=== PATIENT | female | born 1940 | race Two or more races ===

== ENCOUNTER 2024-09-07 09:00 | Day surgery (SDC) | payer OTHER, SELFPAY ==
--- NOTE | 2024-09-01 10:46 | EKG_ITS ---
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
[2024-09-01 10:58] VITALS: BMI 21.4
[2024-09-01 13:16] LABS: Alanine Aminotransferase 13 U/L (10-49); Albumin, Serum 4.2 gm/dL (3.4-4.8); Albumin/Globulin Ratio 1.5 (1.2-2.2); Alkaline Phosphatase 107 U/L (46-116); Anion Gap 7 (7-16); Aspartate Amino Transferase 15 U/L (0-34); BUN/Creatinine Ratio 17 Ratio (12-20); Blood Urea Nitrogen 12 mg/dL (9-23); Calcium 9.5 mg/dL (8.3-10.6); Calcium (Corrected) 9.5 mg/dL (8.5-10.1); Carbon Dioxide 28.6 mMol/L (20.0-31.0); Chloride 102 mMol/L (98-107); Creatinine (Component) 0.7 mg/dL (0.6-1.3); Estimated Creatinine Clearance 40.8 mL/min (>60); Globulin 2.8 gm/dL (2.3-3.5); Glucose 281 mg/dL (74-106); Osmolality,Calculated 285 (275-295); Potassium 4.4 mMol/L (3.4-5.1); Sodium 138 mMol/L (136-145); eGFR > 60 See Note
[2024-09-01 14:12] LABS: Bilirubin,Total 0.6 mg/dL (0.3-1.2)
[2024-09-07] VITALS (13 sets, daily range): BP systolic 116–164; BP diastolic 62–85; PULSE 61–82; RESP 16–20; TEMP 36.2–36.8; O2SAT 96–100; BMI 21.3
[2024-09-07] MEDS: INSULIN HUM REGULAR 1 UNIT/0.01 ML (PER UNIT) 5 UNIT SC (10:45)
--- NOTE | 2024-09-07 13:52 | SUR.PHASEI ---
pt received from OR in recovery bay 5. pt obtunded, breathing unlabored on oxymask 6l, oral airway in place. v/s stable. pt dressing to left ear cdi. report received from Jai CALVERT and Dr. Perez.
--- NOTE | 2024-09-07 13:57 | PD.SUROPNT ---
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 Long process of the malleus was completely eroded and it was fixed as well. Incudostapedial joint was intact and mobile once the malleus was mobilized. Facial nerve was identified in the horizontal segment. This was confirmed with nerve monitor stimulation Procedure Description This is an 83-year-old female with chronic drainage from the left ear with perforation and findings as noted above. This was confirmed with CT scan. Treatment options were discussed as well as risk of bleeding infection hearing loss dizziness decreased sense of taste and recurrence of the infection and perforation. Patient and her family understood this and wished to proceed. Outcomes were discussed with the main goal of the surgery was to close the perforation and resolve the infection. Hearing loss may not be able to be improved. Patient was marked and shaved in the preoperative setting then transferred to the operative suite where she was anesthetized intubated. Timeout was performed the patient was sterilely prepped and draped. The postauricular area was then injected with 1% lidocaine with 1 100,000 dilution epinephrine as well as the canal. The canal was very small and a vertical incision was required both superiorly and inferiorly to improve visualization. Perforation was visualized was anterior marginal encompassing approximately 60% of the tympanic membrane. The canal was injected and irrigated with warm saline solution and suction. Margins of the perforation were prepped with the third millimeter hook. There is tympanosclerotic changes of the tympanic membrane as well. The long process of the malleus is found to be eroded. Posterior tympanomeatal flap was elevated forward. The chorda tympani nerve was not disturbed. The acicular chain was as found above. The malleus was mobilized gently and this improved mobility of the remainder the chain as well. Posterior vascular strip was then developed. The postauricular incision and palva flap were created and the ear was turned forward and held in place with self retaining retractors. The external meatus was narrow so this was opened up with the yeni and then 6 mm cutting bur. Irrigation was performed throughout all the drilling. Canal wall up mastoidectomy was then initiated saving some of the bone just in case it was needed later. Dissection was carried just posterior to the canal wall and then anterior to the sigmoid sinus and inferior to the tegmen. Dissection was carried down into the tip. Once the midportion of the mastoid was reached there was significant mucosal inflammation and thickening. Portion of this was removed and sent for pathologic evaluation. The horizontal canal was identified and then later the facial nerve identified and in the horizontal can segment and confirmed with the nerve stimulator. The mastoid cavity and middle ear were irrigated with warm saline solution. We are able to get flow through the aditus region. Temporalis fascia and periosteum both had been harvested previously these have been pressed and dried. The middle ear was partially filled with Surgifoam. Temporalis fascia was then brought in an underlay overlay technique. This was draped over the Surgifoam and then layered on top of the annulus and draped up on top of the cannot anterior canal wall. A portion of the graft posteriorly was then folded over with a posterior tympanomeatal flap middle ear was then filled with Surgifoam. The graft was then laid back on the posterior canal wall as well as the tympanomeatal flap. Periosteum that been harvested earlier was dipped in saline and then placed over the graft and the tympanic membrane thus creating a double layer graft. Surgifoam dipped in saline was placed on top of the graft material. The aditus region was packed with Surgifoam dipped in Ciprodex for the anti-inflammatory effect. Mupirocin antibiotic ointment was placed in the external canal and the meatus was stented open with Adaptic dipped in antibiotic ointment. Postauricular incision was closed in a multilayer fashion with 4-0 Vicryl and then Dermabond on the skin. The patient was awakened and taken to the recovery room in stable condition Anesthesia GETA Pathology / specimen Other (Mastoid mucosa) Estimated Blood Loss 10 Surgeon Williams Pinedo DO Surgical Staff Operation Date: 09/07/24 11:30 Case Staff Anesthesiologist: Faisal Perez
--- NOTE | 2024-09-07 15:30 | SUR.PHASEII ---
pt able to tolerate oral fluids without difficulty swallowing or nausea/vomiting.
--- NOTE | 2024-09-07 16:44 | SUR.PHASEII ---
pt awake and alert, breathing unlabored on room air. v/s stable. pt dressing to left ear cdi. pt able to ambulate to wheelchair with steady gait. d/c instructions given with daughters in room, all questions answered. pt d.c via wheelchair with all belongings.
== END 2024-09-07 16:44 | disposition home or self-care (01) ==
PROVIDERS: PCP Student in an Organized Health Care Education/Training Program; Referring Provider Otolaryngology; Visit Provider Otolaryngology
PROC: (CPT 69641; principal; 2024-09-07 11:15)
DX: H90.8 Mixed conductive and sensorineural hearing loss, unspecified (principal); H72.91 Unspecified perforation of tympanic membrane, right ear; H70.11 Chronic mastoiditis, right ear; Z01.810 Encounter for preprocedural cardiovascular examination
CPT/HCPCS: 69645; 36415; 80053; 93005; A4217; A4649; J0131; J0171; J0690; J1100; J1815; J2405; J2704; J3010; J3473; J3490; J7040; A9270